=== PATIENT | female | born 1995 | race Hispanic/Latino ===

== ENCOUNTER 2024-12-26 09:49 | Outpatient (CLI) | payer OTHER, SELFPAY | END 2024-12-26 09:50 | disposition home or self-care (01) | LOC: SCSMRI 09:49 | PROVIDERS: ATTEND Otolaryngology Plastic Surgery within the Head & Neck | DX: H91.22 Sudden idiopathic hearing loss, left ear (principal); J34.89 Other specified disorders of nose and nasal sinuses | CPT/HCPCS: 70553; 76376 ==